=== PATIENT | female | born 1990 | race Two or more races ===

== ENCOUNTER 2025-07-07 08:00 | Outpatient (RCR) | payer BC, SELFPAY ==
--- NOTE | 2025-07-07 08:39 | PTNOTE_ITS ---
PT OP Initial Eval Patient Information Outpatient Physical Therapy Treatment Date: 07/07/25 Visit Reasons: low back pain Medical Diagnosis: M54.50 Treatment Dx #1: LBP with radiculopathy Start of Care: 07/07/25 Date of Onset: 1 yr ago Smoking Status Smoking Status: Never smoker Initial Assessment Subjective: Pt is 34 yr old female who reports LBP that radiates into the buttocks and sometimes into the LE's L>R. Increased pain with prolonged standing and laying on her back. PMH: gastric sleeve, hypothyroidism, high cholesterol Imaging: with provider Pt goal: for the pain to go away Objective: Trunk ArOM: ? B SB 50% of normal with pain to the R ? Extension: 20% with pain around L4-5, L5-S1 ? Flexion: 10 from floor ? B rotation: 60% with pain ? TTP: moderate paraspinals L5-S1 on L ? Neuro: L SLR: positive Assessment: ? Pt presents with trunk extension sensitivity and overlying myofascial pain ? and TTP around L5-S1 on L consistent with facet joint articular pain and increased lumbar lordosis ? with radiculopathy. Pt requires skilled therapy in order to decrease ? pain and improve standing tolerance and has fair rehab potential. Eval ?followed by [facility] printout. Short Term and Retirement Goals 1. Ind with [facility] ? 2. Improved standing tolerance to 60 minutes with <=3/10 LBP ? 3. Decreased lower paraspinal TTP from mod to min 4. Improved HH chore tolerance to at least 60 minutes with <=3/10 LBP and no ?increase in LE ssx ? Treatment Plan 1. Manual therapy ? 2. Therex ? 3. Modalities as indicated, moist heat, ice, estim, mechanical traction Frequency and Duration: 1-2x a week for 12 sessions plus the evaluation Certification Dates: 07/07/25 to 10/05/25 Procedure Charges OP PT Eval Mod Complex 30 minutes: Yes
== END 2025-07-28 23:59 | disposition home or self-care (01) ==
LOC: CPTX 08:00
PROVIDERS: PCP Internal Medicine; Referring Provider Internal Medicine; Visit Provider Internal Medicine
DX: M54.16 Radiculopathy, lumbar region (principal)
CPT/HCPCS: 97162